=== PATIENT | male | born 1985 | race Two or more races ===

== ENCOUNTER → 2025-03-09 | Emergency (ER) | payer OTHER ==
[~2025-03-09] VITALS: Ht 170.2 cm; Wt 65.8 kg
[~2025-03-09] MED LIST: FAMOTIDINE/PF 20 MG/2 ML VIAL ONE
== END | disposition home or self-care (01) ==
LOC: ER 17:19
DX: K40.90 Unilateral inguinal hernia, without obstruction or gangrene, not specified as recurrent (principal)